=== PATIENT | male | born 1940 | race Caucasian/White ===

== ENCOUNTER 2019-12-01 14:18 | Inpatient (IN) | payer MEDICARE ==
[2019-12-01 15:40] LABS: BASOPHILS 0.5 % (0-2); HEMATOCRIT 42.9 % (42.0-54.0); HEMOGLOBIN 13.9 g/dL (13.5-17.5); IMMATURE GRANULOCYTES 0.3 % (0-5); MCH 31.4 pg (26.0-34.0); MCHC 32.4 g/dL (31.0-37.0); MCV 96.8 fL (80.0-100.0); MEAN PLATELET VOLUME 9.9 fL (7.4-10.4); MONOCYTES 8.1 % (2-11); NEUTROPHILS 76.1 % (40-80); PLATELET COUNT 240 10x3/uL (130-400); RBC 4.43 10x6/uL (4.20-6.10); RDW 13.1 % (11.5-14.5); WBC 7.6 10x3/uL (4.8-10.8)
[2019-12-01 15:47] LABS: ALBUMIN 3.6 g/dL (3.4-5.0); ANION GAP 11.6 mmol/L (8-16); BILIRUBIN - TOTAL 0.5 mg/dL (0.2-1.3); CALCIUM 8.8 mg/dL (8.5-10.1); CARBON DIOXIDE 30.8 mmol/L (21.0-32.0); CREATININE - SERUM 1.4 mg/dL (0.6-1.3); POTASSIUM - SERUM 4.4 mmol/L (3.5-5.1); PROTEIN - SERUM 7.4 g/dL (6.4-8.2)
--- NOTE | 2019-12-01 16:12 | NUR ---
UNNA BOOTS IN PLACE ON . ORDERS RECEIVED TO REMOVE ON SUNDAY AND APPLY NEW. WOUND CARE CONTINUES TO MONITOR.
--- NOTE | 2019-12-01 16:14 | NUR ---
BILATERAL MOE BOOTS CLEAN DRY AND INTACT
[2019-12-01 17:53] VITALS: BP 145/86
--- NOTE | 2019-12-01 19:33 | MORECARE ---
CASE MANAGEMENT DISCHARGE SUMMARY PATIENT: HARRIET CARRASCO UNIT: [id number] ADM DATE: 12/01/19 AGE: 79 : 42 SEX: M ROOM/BED: D.2139 AUTHOR: RESHMA FINCH PHYSICIAN: REFERRING PHYSICIAN: FLORENCIA ALVAREZ MD DATE OF SERVICE: 12/01/19 Discharge Plan Patient Name: HARRIET CARRASCO Facility: [facility]:[place] : 1940 Planned Disposition: Home with Home Health Anticipated Discharge Date: Discharge Date: Expected LOS: Initial Reviewer: [email or web address] Initial Review Date: 12/01/2019 Generated: 12/01/19 8:32 pm Patient Name: HARRIET CARRASCO Page [id number] at 1933 All edits/amendments must be made on the electronic document DICTATION DATE: 12/01/191931 FABRICATION ENGINEER: STEFFANIE 12/01/191931 RPT#: [id number] DC DATE: STATUS: ADM IN [facility] [address] [place] [address] END OF REPORT
[2019-12-01 20:22] VITALS: BP 150/77
[2019-12-01 23:57] VITALS: BP 127/69
[2019-12-02 04:27] VITALS: BP 114/66
[2019-12-02 08:47] VITALS: BP 140/80
--- NOTE | 2019-12-02 10:20 | MORECARE ---
CASE MANAGEMENT DISCHARGE SUMMARY PATIENT: HARRIET CARRASCO UNIT: [id number] ADM DATE: 12/01/19 AGE: 79 : 42 SEX: M ROOM/BED: D.2139 AUTHOR: RESHMA FINCH PHYSICIAN: REFERRING PHYSICIAN: FLORENCIA ALVAREZ MD DATE OF SERVICE: 12/02/19 Discharge Plan Patient Name: HARRIET CARRASCO Facility: [facility]:[place] : 1940 Planned Disposition: Home with Home Health Anticipated Discharge Date: Discharge Date: Expected LOS: Initial Reviewer: [email or web address] Initial Review Date: 12/01/2019 Generated: 12/02/19 11:20 am DCPIA - Discharge Planning Initial Assessment Updated by [email or web address]: Kelsey Lee on 12/02/19 10:18 am * Is the patient Alert and Oriented? Yes * How many steps to enter\exit or inside your home? 3/0 * PCP MEENAKSHI * Pharmacy [facility] * Preadmission Environment Home Alone * ADLs Independent * Equipment None * List name and contact numbers for known caregivers / representatives who currently or will assist patient after discharge: PT LIVES ALONE. NO FAMILY IN STATE. * Verbal permission to speak to the caregivers and representatives has been obtained from the patient. N/A * Community resources currently utilized None * Additional services required to return to the preadmission environment? Yes * Can the patient safely return to the preadmission environment? Yes * Has this patient been hospitalized within the prior 30 days at any hospital? No Last DP export: 12/01/19 6:33 pm Patient Name: HARRIET CARRASCO Page [id number] at 1020 All edits/amendments must be made on the electronic document DICTATION DATE: 12/02/19 1020 PUBLIC BATH ATTENDANT: STEFFANIE 12/02/19 1020 RPT#: [id number] DC DATE: STATUS: ADM IN [facility] [address] [place] [address] END OF REPORT
--- NOTE | 2019-12-02 10:30 | MORECARE ---
CASE MANAGEMENT DISCHARGE SUMMARY PATIENT: HARRIET CARRASCO UNIT: [id number] ADM DATE: 12/01/19 AGE: 79 : 42 SEX: M ROOM/BED: D.2139 AUTHOR: RESHMA FINCH PHYSICIAN: REFERRING PHYSICIAN: FLORENCIA ALVAREZ MD DATE OF SERVICE: 12/02/19 Discharge Plan Patient Name: HARRIET CARRASCO [facility] [facility] 1940 Planned Disposition: Home with Home Health Anticipated Discharge Date: Discharge Date: Expected LOS: Initial Reviewer: [email or web address] Initial Review Date: 12/01/2019 Generated: 12/02/19 11:30 am DCPIA - Discharge Planning Initial Assessment Updated by [email or web address]: Kelsey Lee on 12/02/19 10:18 am * Is the patient Alert and Oriented? Yes * How many steps to enter\exit or inside your home? 3/0 * PCP MEENAKSHI * [facility] * Preadmission Environment Home Alone * ADLs Independent * Equipment None * List name and contact numbers for known caregivers / representatives who currently or will assist patient after discharge: PT LIVES ALONE. NO FAMILY IN STATE. * Verbal permission to speak to the caregivers and representatives has been obtained from the patient. N/A * Community resources currently utilized None * Additional services required to return to the preadmission environment? Yes * Can the patient safely return to the preadmission environment? Yes * Has this patient been hospitalized within the prior 30 days at any hospital? No External [facility]iders [facility] Next Contact Date: Service Request Date: Service Type: Resolution: Reviewer: Comments: Last DP export: 12/02/19 9:20 am Patient Name: HARRIET CARRASCO Page [phone] at 1030 All edits/amendments must be made on the electronic document DICTATION DATE: 12/02/19 1030 GROUP FITNESS DEPARTMENT HEAD: STEFFANIE 12/02/19 1030 RPT#: [id number] DC DATE: STATUS: ADM IN [facility] [address] [place] [address] END OF REPORT
[2019-12-02] MEDS ORDERED: XALATAN 0.0052.5 ML EACH EYE (10:37)
[2019-12-02] MEDS ORDERED: TIMOPTIC 0.5 % O5 ML EACH EYE (10:38)
[2019-12-02] MEDS ORDERED: FUROSEMIDE40 MG PO (10:39)
[2019-12-02] MEDS ORDERED: K-TAB10 MEQ PO (10:39)
--- NOTE | 2019-12-02 11:24 | NUR ---
SPOKE WITH ABOUT STARTING HOME MEDS. HE STATED THAT HE FAXED OVER ORDERS YESTERDAY THAT STATED TO RESTART HOME MEDS, BUT THEY DID NOT GET RESTARTED. RESTARTING HOME MEDS AT THIS TIME PER . WILL CTM
[2019-12-02 13:11] VITALS: BP 128/69
--- NOTE | 2019-12-02 15:30 | NUR ---
I have reviewed this patient and I concur with the Shift Assessment completed by the Licensed Practical Nurse today this shift.
--- NOTE | 2019-12-02 16:20 | NUR ---
CALLED UPON REQUEST BY CASE MANAGMENT TO FIND OUT WHEN HE WAS GOING TO COME SEE THE PATIENT AND HE SAID "IM IN THE FREAKING ROOM YOUNG LADY".
[2019-12-02 17:10] VITALS: BP 159/83
[2019-12-02 18:11] LABS: BILIRUBIN NEGATIVE (NEGATIVE); GLUCOSE NEGATIVE (NEGATIVE); KETONE NEGATIVE (NEGATIVE); NITRITE NEGATIVE (NEGATIVE); UROBILINOGEN NORMAL (NORMAL)
[2019-12-02 19:58] VITALS: BP 167/87
[2019-12-02 23:28] VITALS: BP 135/55
[2019-12-03 04:11] VITALS: BP 132/65
--- NOTE | 2019-12-03 08:00 | NUR ---
PT RECEIVED AWAKE AND ALERT. DRESSING TO BLE CLEAN AND DRY. ELEVATED ON PILLOWS.
[2019-12-03 08:12] VITALS: BP 169/85
--- NOTE | 2019-12-03 10:32 | MORECARE ---
CASE MANAGEMENT DISCHARGE SUMMARY PATIENT: HARRIET CARRASCO UNIT: [id number] ADM DATE: 12/01/19 AGE: 79 : 42 SEX: M ROOM/BED: D.9186 AUTHOR: JOSETTE,DOC PHYSICIAN: REFERRING PHYSICIAN: FLORENCIA ALVAREZ MD DATE OF SERVICE: 12/03/19 Discharge Plan Patient Name: HARRIET CARRASCO Facility: [facility]:[place] : 1940 Planned Disposition: Home with Home Health Anticipated Discharge Date: Discharge Date: Expected LOS: Initial Reviewer: [email or web address] Initial Review Date: 12/01/2019 Generated: 12/03/19 11:31 am Comments DCP- Discharge Planning Updated by [email or web address]: Kelsey Lee on 12/03/19 9:[address] Patient Name: HARRIET CARRASCO Admission Status: Elective Accout number: [id number] Admission Date: 12-01-2019 : 1940 Admission Diagnosis:CELLULITIS OF LEFT LOWER LIMB Attending: FLORENCIA ALVAREZ Current LOS: 2 Anticipated DC Date: Planned Disposition: Home with Home Health Primary Insurance: AET MEDICARE PPO or HMO Late entry- assessment completed 12/02/19@1000 Discharge Planning Comments: CM met with patient to complete initial dc planning assessment. CM educated patient on the CM role and verbal consent given by patient to complete assessment. CM verified patient's address, phone number, and emergency contact phone numbers. Patient lives at home and states he is independent of his needs. Pt moved to [place] within the year and is renting a furnished apartment. States the mattress is lumpy so he has been sleeping on the couch. he does not feel that the landlord will furnish another mattress, and he is unable to afford one. He also thinks that the landlord will not allow a hospital bed. At discharge patient plans to return home and feels this is a safe discharge. States he has been independent and will remain that way. CM discussed availability of home health, rehab services, and medical equipment. Patient denies rehab, but is in agreement with home health. CM faxed referral to [facility] [phone]. Patient states he drove himself to the hospital, so he will drive himself home. CM will continue to follow and will assist as needed with dc plans/needs. Visual Merchandising Director: Kelsey SAHA,RN,CM 12/03/2019 @ 1000 CM spoke with Adis Carrasco (son) about DC plan and pt condition. Adis stated he will leave in the morning and drive from [place] in the hopes of taking his father home with him. CM provided education about his wounds and the potential complication of being in a vehicle for 2 days. Martínez states he still plans on coming to [place] to assist patient with needs. Adis can be reached at [phone]. CM will continue to follow and will assist as needed with dc plans/needs. Visual Merchandising Director: Kelsey SAHA,RN,CM DCPIA - Discharge Planning Initial Assessment Updated by [email or web address]: Kelsey Lee on 12/02/19 10:18 am * Is the patient Alert and Oriented? Yes * How many steps to enter\exit or inside your home? 3/0 * PCP MEENAKSHI * [facility] * Preadmission Environment Home Alone * ADLs Independent * Equipment None * List name and contact numbers for known caregivers / representatives who currently or will assist patient after discharge: PT LIVES ALONE. NO FAMILY IN STATE. * Verbal permission to speak to the caregivers and representatives has been obtained from the patient. N/A * Community resources currently utilized None * Additional services required to return to the preadmission environment? Yes * Can the patient safely return to the preadmission environment? Yes * Has this patient been hospitalized within the prior 30 days at any hospital? No Last DP export: 12/02/19 9:30 am Patient Name: HARRIET CARRASCO Page [id number] at 1032 All edits/amendments must be made on the electronic document DICTATION DATE: 12/03/19 1031 RN PLACEMENT: STEFFANIE 12/03/19 1031 RPT#: [id number] DC DATE: STATUS: ADM IN [facility] [address] [place] [address] END OF REPORT
--- NOTE | 2019-12-03 11:35 | NUR ---
BILATERAL UNNA BOOTS REMOVED. THE LEFT LOWER LEG HAS 2 LARGE SUPERFICIAL ULCERS WHICH BLEED EASILY. RIGHT LOWER LEG HAS 1 OPEN ULCER. LEGS WERE CLEANSED WITH WOUND SLAGGER AND PATTED DRY. CULTURES WERE OBTAINED FROM LEFT LEG WOUNDS AND SENT TO LAB. NEW UNNA BOOTS WERE APPLIED BILATERALLY. INSTRUCTED PT THAT DR. ALVAREZ HAS ORDERED THEY BE CHANGED TWICE/WEEK AND WHEN HE IS DISCHARGED, HOME HEALTH WILL BE DOING THE DRESSING CHANGES. HE VOICED HIS UNDERSTANDING. FOOT OF BED IS ELEVATED AND LEGS ARE RESTING ON TOP OF 2 PILLOWS FOR MORE ELEVATION. WOUND CARE CONTINUES TO MONITOR.
[2019-12-03 11:40] VITALS: BP 156/83
[2019-12-03 16:35] VITALS: BP 147/84
[2019-12-03 20:00] VITALS: BP 143/75
--- NOTE | 2019-12-03 21:49 | NUR ---
PT RESTING IN BED WITH FEET ELEVATED ABOVE HEART PER ORDER. PT IS A/O X4. RR EVEN AND UNLABORED. VITALS STABLE. PT DENIES ANY PAIN OR FURTHER NEEDS AT THIS TIME. BED LOW CALL LIGHT WITHIN REACH. WILL CONTINUE TO MONITOR.
[2019-12-04 09:37] VITALS: BP 135/71
--- NOTE | 2019-12-04 15:15 | NUR ---
PT'S DISCHARGE INSTRUCTIONS REVIEWED AND SIGNED. ASSIST TO DRESS AND WHEELED OUT TO CAR TO DRIVE SELF HOME.
--- NOTE | 2019-12-04 19:29 | MORECARE ---
CASE MANAGEMENT DISCHARGE SUMMARY PATIENT: HRARIET CARRASCO UNIT: [id number] ADM DATE: 12/01/19 AGE: 79 : 42 SEX: M ROOM/BED: D.6944 AUTHOR: JOSETTE,DOC PHYSICIAN: REFERRING PHYSICIAN: FLORENCIA ALVAREZ MD DATE OF SERVICE: 12/04/19 Discharge Plan Patient Name: HARRIET CARRASCO Facility: [facility]:[place] : 1940 Planned Disposition: Home with Home Health Anticipated Discharge Date: Discharge Date: 12/04/2019 Expected LOS: Initial Reviewer: [email or web address] Initial Review Date: 12/01/2019 Generated: 12/04/19 8:29 pm Comments DCP- Discharge Planning Updated by [email or web address]: Kelsey Lee on 12/03/19 9:[address] Patient Name: HARRIET CARRASCO Admission Status: Elective Accout number: [id number] Admission Date: 12-01-2019 : 1940 Admission Diagnosis:CELLULITIS OF LEFT LOWER LIMB Attending: FLORENCIA ALVAREZ Current LOS: 2 Anticipated DC Date: Planned Disposition: Home with Home Health Primary Insurance: AETNA MEDICARE PPO or HMO Late entry- assessment completed 12/02/19@1000 Discharge Planning Comments: CM met with patient to complete initial dc planning assessment. CM educated patient on the CM role and verbal consent given by patient to complete assessment. CM verified patient's address, phone number, and emergency contact phone numbers. Patient lives at home and states he is independent of his needs. Pt moved to [place] within the year and is renting a furnished apartment. States the mattress is lumpy so he has been sleeping on the couch. he does not feel that the landlord will furnish another mattress, and he is unable to afford one. He also thinks that the landlord will not allow a hospital bed. At discharge patient plans to return home and feels this is a safe discharge. States he has been independent and will remain that way. CM discussed availability of home health, rehab services, and medical equipment. Patient denies rehab, but is in agreement with home health. CM faxed referral to [facility] [phone]. Patient states he drove himself to the hospital, so he will drive himself home. CM will continue to follow and will assist as needed with dc plans/needs. Health Promotion Specialist: Kelsey Lee MSN,RN,CM 12/03/2019 @ 1000 CM spoke with Adis Carrasco (son) about DC plan and pt condition. Adis stated he will leave in the morning and drive from [place] in the hopes of taking his father home with him. CM provided education about his wounds and the potential complication of being in a vehicle for 2 days. Martínez states he still plans on coming to [place] to assist patient with needs. Adis can be reached at [phone]. CM will continue to follow and will assist as needed with dc plans/needs. Health Promotion Specialist: Kelsey SAHA,RN,LATIA DCPIA - Discharge Planning Initial Assessment Updated by [email or web address]: Kelsey Lee on 12/02/19 10:18 am * Is the patient Alert and Oriented? Yes * How many steps to enter\exit or inside your home? 3/0 * PCP MEENAKSHI * Pharmacy [facility] * Preadmission Environment Home Alone * ADLs Independent * Equipment None * List name and contact numbers for known caregivers / representatives who currently or will assist patient after discharge: PT LIVES ALONE. NO FAMILY IN STATE. * Verbal permission to speak to the caregivers and representatives has been obtained from the patient. N/A * Community resources currently utilized None * Additional services required to return to the preadmission environment? Yes * Can the patient safely return to the preadmission environment? Yes * Has this patient been hospitalized within the prior 30 days at any hospital? No Last DP export: 12/03/19 9:32 am Patient Name: HARRIET CARRASCO Page [id number] at 192 All edits/amendments must be made on the electronic document DICTATION DATE: 12/04/191928 DIAGRAMMER AND SEAMER: STEFFANIE 12/04/191928 RPT#: [id number] DC DATE:12/04/19 STATUS: DIS IN [facility] [address] [place] [address] END OF REPORT
== END 2019-12-04 15:17 | disposition home health service (06) | DRG 300 ==
LOC: D.M2 14:18
PROVIDERS: ADMIT Surgery; ATTEND Surgery
DX: I87.021 Postthrombotic syndrome with inflammation of right lower extremity (principal); I87.032 Postthrombotic syndrome with ulcer and inflammation of left lower extremity; L03.115 Cellulitis of right lower limb; L03.116 Cellulitis of left lower limb; I83.893 Varicose veins of bilateral lower extremities with other complications; I83.813 Varicose veins of bilateral lower extremities with pain